=== PATIENT | female | born 1955 | race Two or more races ===

== ENCOUNTER 2016-09-15 20:31 | Emergency (ER) | payer SELFPAY ==
[~2016-09-15] VITALS: Ht 160 cm; Wt 57.2 kg
[2016-09-15 20:49] VITALS: BP 117/89
== END 2016-09-15 21:11 | disposition home or self-care (01) ==
LOC: ER 20:32
DX: J06.9 Acute upper respiratory infection, unspecified (principal); M19.90 Unspecified osteoarthritis, unspecified site; Z88.5 Allergy status to narcotic agent; Z90.710 Acquired absence of both cervix and uterus
CPT/HCPCS: 99281; A4606; Z7610; Z7502

== ENCOUNTER 2017-04-22 05:35 | Emergency (ER) | payer MEDICAID ==
[~2017-04-22] VITALS: Ht 160 cm; Wt 56.7 kg
--- NOTE | 2017-04-22 05:43 | NUR ---
PT TO ER BED 3. PT BIBRA C/O L ARM PAIN X 20 MIN, DENIES TRAUMA. +CSM. 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 VSS/RESP EVEN UNLABORED/NAD NOTED/SKIN WARM AND DRY/DENIES N-V-D/ AFEBRILE/AOX4. AWAITING MD EASTMAN.
[2017-04-22] MEDS ORDERED: MORPHINE SULFATE INJ 2 MG/ML DISP.SYRIN IV ONE (06:30)
[2017-04-22] MEDS ORDERED: MORPHINE SULFATE INJ 4 MG/ML DISP.SYRIN ONE (06:32)
--- NOTE | 2017-04-22 06:51 | NUR ---
EMT AT BEDSIDE FOR EKG
--- NOTE | 2017-04-22 07:17 | NUR ---
XRAY AT BEDSIDE.
--- NOTE | 2017-04-22 07:22 | NUR ---
REPORT GIVEN TO STUART MACIAS FOR JABIER.
--- NOTE | 2017-04-22 07:31 | NUR ---
IV STARTED 20 G RT WRIST O2 N/C 2L 98% Patient eloped from facility. ER MD notified.
--- NOTE | 2017-04-22 07:51 | NUR ---
PT SIGNED CONSENT FOE PROCEDURE LEFT SHOULDER DISLOCATION
[2017-04-22] MEDS ORDERED: PROPOFOL 200 MG/20 ML VIAL IV ONE (08:00)
[2017-04-22] MEDS ORDERED: PROPOFOL 40 ML IV ONE (08:02)
--- NOTE | 2017-04-22 08:29 | NUR ---
PT GIVEN MEDS TOLERATED PROCEDURE WELL FAMILY AT BEDSIDE PENDING XRAY
[2017-04-22] MEDS ORDERED: KETOROLAC TROMETHAMINE INJ 30 MG/ML VIAL ONE (08:46)
[2017-04-22] MEDS ORDERED: KETOROLAC TROMETHAMINE INJ 30 MG/ML VIAL IV ONE (09:00)
--- NOTE | 2017-04-22 09:12 | NUR ---
PT. VERBALIZED UNDERSTANDING OF AFTERCARE INSTRUCTIONS.Patient discharged to home in stable condition. Written and verbal after care instructions given. Patient verbalizes understanding of instruction.IV removed. Catheter intact and site benign. Pressure and 4x4 applied to site. No bleeding noted.
[2017-04-22 09:14] VITALS: BP 123/70
== END 2017-04-22 09:16 | disposition home or self-care (01) ==
LOC: ER 05:36
DX: S43.015A Anterior dislocation of left humerus, initial encounter (principal); M19.90 Unspecified osteoarthritis, unspecified site; F10.10 Alcohol abuse, uncomplicated; Z88.5 Allergy status to narcotic agent; Z90.710 Acquired absence of both cervix and uterus; X58.XXXA Exposure to other specified factors, initial encounter; Y93.89 Activity, other specified; Y92.89 Other specified places as the place of occurrence of the external cause; Y99.8 Other external cause status
CPT/HCPCS: 23650; 73030 ×2; 96372; 96374; 99152; 99285; A4606; J1885; J2270; J2704; Z7610

== ENCOUNTER 2017-12-11 11:18 | Emergency (ER) | payer MEDICAID ==
[~2017-12-11] VITALS: Ht 152.4 cm; Wt 60.8 kg
[2017-12-11 11:29] VITALS: BP 134/77
[2017-12-11] MEDS ORDERED: IBUPROFEN 600 MG TABLET PO ONE ×2 (11:51→12:00)
== END 2017-12-11 12:58 | disposition home or self-care (01) ==
LOC: ER 11:21
DX: S62.611A Displaced fracture of proximal phalanx of left index finger, initial encounter for closed fracture (principal); F10.10 Alcohol abuse, uncomplicated; Z90.710 Acquired absence of both cervix and uterus; Z88.5 Allergy status to narcotic agent; Z60.2 Problems related to living alone; Y90.9 Presence of alcohol in blood, level not specified; W22.8XXA Striking against or struck by other objects, initial encounter; Y93.89 Activity, other specified; Y92.89 Other specified places as the place of occurrence of the external cause; Y99.8 Other external cause status
CPT/HCPCS: 73140; 99284; A4606; Z7610